=== PATIENT | female | born 1990 | race Caucasian/White ===

== ENCOUNTER 2019-08-21 00:06 | Emergency (ER) | payer OTHER ==
[2019-08-21] MEDS ORDERED: LORazepam 2 MG/ML VIAL ONE (00:41)
[2019-08-21] MEDS ORDERED: NA CHLORIDE 0.9% 1,000 ML ONE (00:41)
[2019-08-21 00:52] LABS: Basophils % 0.3 % (0-1.3); Hematocrit 32.8 % (36.0-45.0); Lymphocytes % 24.8 % (15.3-44.8); MPV 7.2 fL (7.6-11.3)
[2019-08-21 01:07] LABS: Potassium 3.8 mmol/L (3.5-5.1)
--- NOTE | 2019-08-21 02:02 | ER ---
Nurse's Notes [facility] Name: Jovana Galo Age: 29 yrs Sex: Female : 1990 Arrival Date: 08/21/2019 Time: 00:10 Bed 8 Private MD: Diagnosis: Chest pain, unspecified;Recent influenza, adverse reaction to Tamiflu;Hyperventilation Presentation: 08/21 00:19 Presenting complaint: Patient states: she was diagnosed with the flu on Thursday and just aa1 finished taking her Tamiflu today and this evening she started having chest tightness and felt as if she couldn't breathe. Denies pain. States, "I just can't catch my breath." Pt hyperventilating upon arrival. Transition of care: patient was not received from another setting of care. Onset of symptoms was August 21, 2019. Initial Sepsis Screen: Does the patient meet any 2 criteria? RR > 20 per min. HR > 90 bpm. Does the patient have a suspected source of infection? No. Patient's initial sepsis screen is negative. Care prior to arrival: None. 00:19 Method Of Arrival: Ambulatory aa1 00:19 Acuity: MARLY 3 aa1 02:06 Risk Assessment: Do you want to hurt yourself or someone else? Patient reports no jd3 desire to harm self or others. Triage Assessment: 00:22 General: Appears in no apparent distress. uncomfortable, Behavior is cooperative, aa1 appropriate for age, anxious. Pain: Denies pain. 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 - Coronavirus screen:: The patient has NOT traveled to [place] in the past 14 days. Proceed with normal triage process as indicated. - Social history:: Smoking status: Patient denies any tobacco usage or history of. - Ebola Screening: : Patient denies exposure to infectious person Patient denies travel to an Ebola-affected area in the 21 days before illness onset. Screenin:06 Abuse screen: Denies threats or abuse. Nutritional screening: No deficits noted. jd3 Tuberculosis screening: No symptoms or risk factors identified. Fall Risk IV access (20 points). Ambulatory Aid- None/Bed Rest/Nurse Assist (0 pts). Gait- Normal/Bed Rest/Wheelchair (0 pts) Mental Status- Oriented to own ability (0 pts). Total Vogel Fall Scale indicates No Risk (0-24 pts). Assessment: 00:53 General: Appears in no apparent distress. uncomfortable, well groomed, Behavior is jd3 cooperative, agitated, anxious, restless. Pain: Complains of pain in right jaw, back and chest Pain does not radiate. Pain currently is 8.5 out of 10 on a pain scale. Quality of pain is described as crampy, sharp, stabbing, Pain began 2 hours ago. Neuro: Level of Consciousness is awake, alert, obeys commands, Oriented to person, place, time, situation. Cardiovascular: Heart tones S1 S2 present Capillary refill < 3 seconds in bilateral Patient's skin is warm and dry. Respiratory: Reports shortness of breath at rest Airway is patent Breath sounds are clear bilaterally. GI: Abdomen is flat, non-distended, Bowel sounds present X 4 quads. Abd is soft and non tender X 4 quads. : No signs and/or symptoms were reported regarding the genitourinary system. EENT: No signs and/or symptoms were reported regarding the EENT system. Derm: Skin is intact, is healthy with good turgor, Skin is dry, Skin is normal, Skin temperature is warm. Musculoskeletal: No signs and/or symptoms reported regarding the musculoskeletal system. Circulation, motion, and sensation intact. Range of motion: intact in all extremities. 01:30 Reassessment: Patient appears in no apparent distress at this time. No changes from jd3 previously documented assessment. Patient and/or family updated on plan of care and expected duration. Pain level reassessed. Patient is alert, oriented x 3, equal unlabored respirations, skin warm/dry/pink. 02:00 Reassessment: Patient appears in no apparent distress at this time. Patient and/or jd3 family updated on plan of care and expected duration. Pain level reassessed. Patient is alert, oriented x 3, equal unlabored respirations, skin warm/dry/pink. pt reports less anxiety Patient states feeling better. 02:20 Reassessment: Patient appears in no apparent distress at this time. Patient and/or jd3 family updated on plan of care and expected duration. Pain level reassessed. Patient is alert, oriented x 3, equal unlabored respirations, skin warm/dry/pink. pt reported understanding of discharge instructions, even and steady gait upon discharge. Vital Signs: 00:22 BP 123 / 95; Pulse 110; Resp 28; Temp 98.4; Pulse Ox 100% on R/A; Weight 58.06 kg; aa1 Height 5 ft. 4 in. (162.56 cm); Pain 0/10; 01:59 BP 123 / 95; Pulse 95; Resp 18 S; Pulse Ox 100% on R/A; jd3 00:22 Body Mass Index 21.97 (58.06 kg, 162.56 cm) aa1 ED Course: 00:10 Patient arrived in ED. es 00:13 [facility]C [facility] snw 00:13 Shay Workman MD is Attending Physician. snw 00:18 Patient placed in an exam room, on a stretcher. aa1 00:21 Triage completed. aa1 00:26 Ozzie Rubio, RN is Primary Nurse. jd3 00:34 EKG done, by ED staff, reviewed by Lola COSME. jd3 01:00 Inserted saline lock: 20 gauge in right antecubital area, using aseptic technique. jd3 Blood collected. 02:05 Patient has correct armband on for positive identification. monitoring tech on. Pulse jd3 ox on. NIBP on. 02:05 No provider procedures requiring assistance completed. Patient maintains SpO2 jd3 saturation greater than 95% on room air. 02:20 IV discontinued, intact, bleeding controlled, No redness/swelling at site. Pressure jd3 dressing applied. Administered Medications: 00:52 Drug: NS 0.9% 1000 ml Route: IV; Rate: 1 bolus; Site: right antecubital; jd3 00:52 Drug: Ativan 2 mg Route: IVP; Site: right antecubital; jd3 01:50 Follow up: Response: No adverse reaction jd3 Outcome: 02:00 Discharge ordered by . snw 02:19 Discharged to home ambulatory, with family. jd3 02:19 Condition: stable 02:19 Discharge instructions given to patient, family, Instructed on discharge instructions, follow up and referral plans. medication usage, Demonstrated understanding of instructions, follow-up care, medications, Prescriptions given X 1. 02:21 Patient left the ED. jd3 Signatures: Lorena Auguste RN RN aa1 Lola Melton, ACRYLIC FABRICATOR-C ACRYLIC FABRICATOR-Csnw Pratibha Lynn Jonathon, RN RN jd3 Corrections: (The following items were deleted from the chart) 02:21 02:00 Reassessment: Patient appears in no apparent distress at this time. Patient jd3 and/or family updated on plan of care and expected duration. Pain level reassessed. Patient is alert, oriented x 3, equal unlabored respirations, skin warm/dry/pink. Patient states feeling better. jd3
--- NOTE | 2019-08-21 02:03 | EDPHYS ---
Physician Documentation [facility] Name: Jovana Galo Age: 29 yrs Sex: Female : 1990 Arrival Date: 08/21/2019 Time: 00:10 Bed 8 Private MD: ED Physician Shay Workman HPI: 08/21 01:09 This 29 yrs old Female presents to ER via Ambulatory with complaints of Chest snw Tightness, Breathing Difficulty. 01:09 Onset: The symptoms/episode began/occurred suddenly, and became persistent. Associated snw signs and symptoms: Pertinent positives: chest pain, congestion, shortness of breath. Modifying factors: The patient symptoms are alleviated by nothing. It is unknown whether or not the patient has had similar symptoms in the past. It is unknown whether or not the patient has recently seen a physician. usually takes Klonopin q evening, did not take tonight. 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 - Coronavirus screen:: The patient has NOT traveled to [place] in the past 14 days. Proceed with normal triage process as indicated. - Social history:: Smoking status: Patient denies any tobacco usage or history of. - Ebola Screening: : Patient denies exposure to infectious person Patient denies travel to an Ebola-affected area in the 21 days before illness onset. ROS: 00:47 Constitutional: Negative for fever, chills, and weight loss, Eyes: Negative for injury, snw pain, redness, and discharge, ENT: Negative for injury, pain, and discharge, Neck: Negative for injury, pain, and swelling, Abdomen/GI: Negative for abdominal pain, nausea, vomiting, diarrhea, and constipation, Back: Negative for injury and pain, : Negative for injury, bleeding, discharge, and swelling, MS/Extremity: Negative for injury and deformity, Skin: Negative for injury, rash, and discoloration, Neuro: Negative for headache, weakness, numbness, tingling, and seizure, Psych: Negative for depression, anxiety, suicide ideation, homicidal ideation, and hallucinations. 00:47 Cardiovascular: Positive for chest pain. 00:47 Respiratory: Positive for orthopnea, shortness of breath. Exam: 00:45 Head/Face: Normocephalic, atraumatic. Eyes: Pupils equal round and reactive to light, snw extra-ocular motions intact. Lids and lashes normal. Conjunctiva and sclera are non-icteric and not injected. Cornea within normal limits. Periorbital areas with no swelling, redness, or edema. ENT: Nares patent. No nasal discharge, no septal abnormalities noted. Tympanic membranes are normal and external auditory canals are clear. Oropharynx with no redness, swelling, or masses, exudates, or evidence of obstruction, uvula midline. Mucous membranes moist. Neck: Trachea midline, no thyromegaly or masses palpated, and no cervical lymphadenopathy. Supple, full range of motion without nuchal rigidity, or vertebral point tenderness. No Meningismus. Chest/axilla: Normal chest wall appearance and motion. Nontender with no deformity. No lesions are appreciated. 00:45 Abdomen/GI: Soft, non-tender, with normal bowel sounds. No distension or tympany. No guarding or rebound. No evidence of tenderness throughout. Back: No spinal tenderness. No costovertebral tenderness. Full range of motion. Skin: Warm, dry with normal turgor. Normal color with no rashes, no lesions, and no evidence of cellulitis. MS/ Extremity: Pulses equal, no cyanosis. Neurovascular intact. Full, normal range of motion. Neuro: Awake and alert, GCS 15, oriented to person, place, time, and situation. Cranial nerves II-XII grossly intact. Motor strength 5/5 in all extremities. Sensory grossly intact. Cerebellar exam normal. Normal gait. 00:45 Constitutional: The patient appears awake, anxious, restless. 00:45 Cardiovascular: Rate: tachycardic, Rhythm: regular, Pulses: no pulse deficits are appreciated. 00:45 Respiratory: the patient does not display signs of respiratory distress, Respirations: shallow respirations, splinting, that is mild, tachypnea, Breath sounds: are clear throughout, no bronchial sounds, hyperventilating. 00:45 Psych: Behavior/mood is anxious, Affect is animated, Oriented to person, place, time, Judgement / Insight is normal. tearful. Vital Signs: 00:22 BP 123 / 95; Pulse 110; Resp 28; Temp 98.4; Pulse Ox 100% on R/A; Weight 58.06 kg; aa1 Height 5 ft. 4 in. (162.56 cm); Pain 0/10; 01:59 BP 123 / 95; Pulse 95; Resp 18 S; Pulse Ox 100% on R/A; jd3 00:22 Body Mass Index 21.97 (58.06 kg, 162.56 cm) aa1 MDM: 00:14 Patient medically screened. gina 01:38 Data reviewed: vital signs, nurses notes. Data interpreted: Pulse oximetry: on room air snw is 100 %. Interpretation: normal. Counseling: I had a detailed discussion with the patient and/or guardian regarding: the historical points, exam findings, and any diagnostic results supporting the discharge/admit diagnosis, the presence of at least one elevated blood pressure reading (>120/80) during this emergency department visit, lab results. Response to treatment: the patient's symptoms have markedly improved after treatment. Special discussion: Based on the patient's history, exam, and Dx evaluation, there is no indication for emergent intervention or inpatient Tx. It is understood by the patient/guardian that if the Sx's persist or worsen they need to return immediately for re-evaluation. I have referred the patient to see his PCP for further evaluation of high blood pressure. Based on the history and exam findings, there is no indication for further emergent testing or inpatient evaluation. I discussed with the patient/guardian the need to see the primary care provider for further evaluation of the symptoms. 08/21 00:18 Order name: DD snw 08/21 00:18 Order name: CBC with Diff snw 08/21 00:18 Order name: Chem 7 snw 08/21 00:55 Order name: CBC with Automated Diff; Complete Time: 00:57 EDMS 08/21 01:00 Order name: D-Dimer; Complete Time: 01:07 EDMS 08/21 01:07 Order name: Basic Metabolic Panel; Complete Time: 01:08 EDMS 08/21 00:18 Order name: EKG; Complete Time: 00:19 snw 08/21 00:18 Order name: EKG - Nurse/Tech; Complete Time: 00:52 snw Administered Medications: 00:52 Drug: NS 0.9% 1000 ml Route: IV; Rate: 1 bolus; Site: right antecubital; jd3 00:52 Drug: Ativan 2 mg Route: IVP; Site: right antecubital; jd3 01:50 Follow up: Response: No adverse reaction jd3 Disposition: 03:09 Co-signature as Attending Physician, Shay Workman MD I agree with the assessment and gina plan of care. Disposition: 08/21/19 02:00 Discharged to Home. Impression: Chest pain, unspecified, Recent influenza, adverse reaction to Tamiflu, Hyperventilation. - Condition is Stable. - Discharge Instructions: Nonspecific Chest Pain, Hypertension, Hyperventilation, Rehydration, Adult. - Prescriptions for orphenadrine citrate 100 mg Oral Tablet Sustained Release - take 1 tablet by ORAL route 2 times per day As needed; 20 tablet. - Work release form, Medication Reconciliation Form, Thank You Letter, Antibiotic Education, Prescription Opioid Use form. - Follow up: Emergency Department; When: As needed; Reason: Worsening of condition. Follow up: Private Physician; When: 2 - 3 days; Reason: Recheck today's complaints, Continuance of care, Re-evaluation by your physician. Signatures: Dispatcher [employer] Lorena Boss, RN RN Shay Mejia MD MD cha Therrien, Shelly, RADIAL ROUTER OPERATOR-C RADIAL ROUTER OPERATOR-Hayleew Ozzie Rubio RN RN jd3 Corrections: (The following items were deleted from the chart) 02:21 02:00 08/21/2019 02:00 Discharged to Home. Impression: Chest pain, unspecified; Recent jd3 influenza, adverse reaction to Tamiflu; Hyperventilation. Condition is Stable. Discharge Instructions: Nonspecific Chest Pain, Hypertension, Hyperventilation, Rehydration, Adult. Prescriptions for orphenadrine citrate 100 mg Oral Tablet Sustained Release - take 1 tablet by ORAL route 2 times per day As needed; 20 tablet. and Forms are Work release form, Medication Reconciliation Form, Thank You Letter, Antibiotic Education, Prescription Opioid Use. Follow up: Emergency Department; When: As needed; Reason: Worsening of condition. Follow up: Private Physician; When: 2 - 3 days; Reason: Recheck today's complaints, Continuance of care, Re-evaluation by your physician. snw
[2019-08-21 02:51] VITALS: BP 123/95; O2SAT 100
[2019-08-21 02:52] VITALS: TEMP 98.4
--- NOTE | 2019-08-21 07:45 | EKG ---
Test Date: 2019-08-21 Test Time: 00:34:51 Cost Report Clerk: AYDEN MEASUREMENT RESULTS: Intervals: Rate: 109 HI: 112 QRSD: 80 QT: 338 QTc: 455 [place]: P: 73 HI: 112 QRS: 70 T: 56 INTERPRETIVE STATEMENTS: Sinus tachycardia Otherwise normal ECG Compared to ECG 12/19/2014 02:50:15 Sinus rhythm no longer present Electronically Signed On 08-21-19 07:44:23 SEISMOGRAPH COMPUTER by Fabrice Toussaint
== END 2019-08-21 02:21 | disposition home or self-care (01) ==
LOC: ER 00:06
DX: R06.4 Hyperventilation (principal); T37.5X5A Adverse effect of antiviral drugs, initial encounter; J11.1 Influenza due to unidentified influenza virus with other respiratory manifestations; F41.9 Anxiety disorder, unspecified; Z98.82 Breast implant status
CPT/HCPCS: 93005; 85025; 80048; 36415; 85379; 96374; 99285; J7030

== ENCOUNTER 2020-10-28 15:15 | Emergency (ER) | payer OTHER ==
[2020-10-28] MEDS ORDERED: LORAZEPAM 1 MG TABLET ONE (16:54)
[2020-10-28] MEDS ORDERED: LIDOCAINE 1% 20 ML MDV ONE (16:54)
--- NOTE | 2020-10-28 17:35 | RAD REPORT ---
EXAM DESCRIPTION: RAD - Forearm Left - 10/28/2020 5:10 pm CLINICAL HISTORY: laceration FINDINGS: No fracture or radiopaque foreign body seen.
--- NOTE | 2020-10-28 18:42 | EDPHYS ---
Physician Documentation [facility] Name: Jovana Galo Age: 30 yrs Sex: Female : 1990 Arrival Date: 10/28/2020 Time: 15:16 Bed 28 Private MD: ED Physician Evelyn Gibbons HPI: 10/28 19:12 This 30 yrs old Female presents to ER via Ambulatory with complaints of kb Laceration To Arm. 19:12 The patient has a laceration related to: carrying a mirror that fell and a piece of kb glass cut forearm occurred at home, and there are no complicating factors. The injury was accidental. The laceration(s) is(are) located on the dorsal aspect of left forearm. Onset: The symptoms/episode began/occurred just prior to arrival. Associated signs and symptoms: The patient has no apparent associated signs or symptoms. The patient has not experienced similar symptoms in the past. The patient has not recently seen a physician. 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 - Social history:: Smoking status: Patient/guardian denies using tobacco, the patient reports quitting approximately 6 years ago. ROS: 19:10 Constitutional: Negative for fever, chills, and weight loss, MS/Extremity: Negative for kb injury and deformity, Neuro: Negative for headache, weakness, numbness, tingling, and seizure. 19:10 Skin: Positive for laceration(s), of the dorsal aspect of left forearm. Exam: 19:11 Head/Face: Normocephalic, atraumatic. Respiratory: Respirations even and unlabored. kb No increased work of breathing, no retractions or nasal flaring. MS/ Extremity: Pulses equal, no cyanosis. Neurovascular intact. Full, normal range of motion. Neuro: Awake and alert, GCS 15, oriented to person, place, time, and situation. Moves all extremities. Normal gait. 19:11 Constitutional: The patient appears alert, awake, anxious. 19:11 Skin: injury, laceration(s), the wound is approximately 8 cm(s), with a depth of 1.5 cm(s), of the dorsal aspect of left forearm, that can be described as clean, no foreign body, linear, without bleeding. Vital Signs: 15:57 BP 99 / 86; Pulse 98; Resp 18 S; Temp 98.2(TE); Pulse Ox 99% on R/A; Weight 67.59 kg ca1 (R); Height 5 ft. 4 in. (162.56 cm) (R); Pain 10/10; 15:57 Body Mass Index 25.58 (67.59 kg, 162.56 cm) ca1 Laceration: 18:38 Wound Repair of 8cm ( 3.1in ) subcutaneous laceration to dorsal aspect of left forearm. kb Linear shaped.. Distal neuro/vascular/tendon intact. Anesthesia: Wound infiltrated with 7 mls of 1% lidocaine. Wound prep: Extensive cleansing with hibiclenz by me, Wound irrigation with saline by me. Skin closed with 7 4-0 Prolene using 3 cruciate sutures, 4 simple sutures, 1 internal simple suture using 4.0 chromic. Patient tolerated well. MDM: 16:22 Patient medically screened. kb 18:38 Data reviewed: vital signs, nurses notes. Data interpreted: Pulse oximetry: on room air kb is 99 %. Interpretation: normal. Counseling: I had a detailed discussion with the patient and/or guardian regarding: the historical points, exam findings, and any diagnostic results supporting the discharge/admit diagnosis, radiology results, the need for outpatient follow up, a family practitioner, to return to the emergency department if symptoms worsen or persist or if there are any questions or concerns that arise at home. 10/28 16:43 Order name: Forearm Left XRAY; Complete Time: 17:42 aa5 10/28 16:32 Order name: Prolene, Sutures; Complete Time: 16:51 kb 10/28 16:32 Order name: Gloves, Sterile; Complete Time: 16:51 kb 10/28 16:32 Order name: Setup Suture Tray; Complete Time: 16:51 kb Administered Medications: 16:35 Drug: Ativan (LORazepam) 1 mg Route: PO; aa5 18:00 Drug: Lidocaine (1 %) 1 vials {Note: administered by KAIAKO KOHANGA REO during laceration repair. .} aa5 Volume: 20 ml; Route: Infiltration; Disposition: 10/28/20 18:41 Discharged to Home. Impression: Laceration without foreign body of left forearm. - Condition is Stable. - Discharge Instructions: Laceration Care, Adult, [id number]. - Medication Reconciliation Form, Thank You Letter, Antibiotic Education, Prescription Opioid Use, Work release form form. - Follow up: Emergency Department; When: As needed; Reason: Worsening of condition. Follow up: Private Physician; When: 2 - 3 days; Reason: Recheck today's complaints, Continuance of care, Re-evaluation by your physician. - Notes: sutures to be removed in 10-14 days Addendum: 10/31/2020 20:23 Co-signature as Attending Physician, Evelyn Gibbons MD. m a2 Signatures: Dispatcher [employer] EDMS Michelle Dawn, BA HINOJOSA-Hyacinth Tineo, RN RN aa5 Evelyn Gibbons MD MD ma2 Danielle Benitez Cheryl, RN RN ca1 Corrections: (The following items were deleted from the chart) 10/28 18:53 18:41 10/28/2020 18:41 Discharged to Home. Impression: Laceration without foreign body eb of left forearm. Condition is Stable. Forms are Medication Reconciliation Form, Thank You Letter, Antibiotic Education, Prescription Opioid Use. Follow up: Emergency Department; When: As needed; Reason: Worsening of condition. Follow up: Private Physician; When: 2 - 3 days; Reason: Recheck today's complaints, Continuance of care, Re-evaluation by your physician. kb
--- NOTE | 2020-10-28 18:42 | ER ---
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 Was carrying a mirror when ca1 the mirror fell and cut my L forearm. Bleeding controlled. Coronavirus screen: Client denies travel out of the [place] in the last 14 days. At this time, the client does not indicate any symptoms associated with coronavirus-19. Ebola Screen: Patient negative for fever greater than or equal to 101.5 degrees Fahrenheit, and additional compatible Ebola Virus Disease symptoms Patient denies exposure to infectious person. Patient denies travel to an Ebola-affected area in the 21 days before illness onset. No symptoms or risks identified at this time. Initial Sepsis Screen: Does the patient meet any 2 criteria? No. Patient's initial sepsis screen is negative. Does the patient have a suspected source of infection? No. Patient's initial sepsis screen is negative. Risk Assessment: Do you want to hurt yourself or someone else? Patient reports no desire to harm self or others. Onset of symptoms was October 28, 2020. 15:57 Method Of Arrival: Ambulatory ca1 15:57 Acuity: MARLY 4 ca1 Triage Assessment: 16:01 Injury Description: Laceration sustained to dorsal aspect of left forearm is 7.6 to 20 ca1 cm long, bleeding moderately. 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 - Social history:: Smoking status: Patient/guardian denies using tobacco, the patient reports quitting approximately 6 years ago. Screenin:45 Abuse screen: Denies threats or abuse. Nutritional screening: No deficits noted. aa5 Tuberculosis screening: No symptoms or risk factors identified. Fall Risk None identified. Assessment: 16:30 General: Appears uncomfortable, Behavior is anxious. Pain: Complains of pain in dorsal aa5 aspect of left forearm. Neuro: Level of Consciousness is awake, alert, obeys commands, Oriented to person, place, time, situation. Cardiovascular: Capillary refill < 3 seconds is brisk in bilateral fingers. Respiratory: Airway is patent Respiratory effort is even, unlabored, Respiratory pattern is hyperventilation. GI: No signs and/or symptoms were reported involving the gastrointestinal system. : No signs and/or symptoms were reported regarding the genitourinary system. EENT: No signs and/or symptoms were reported regarding the EENT system. Derm: Skin is pink, warm \T\ dry. Musculoskeletal: Range of motion: intact in all extremities. Injury Description: Laceration sustained to left forearm is bleeding a small amount a dressing was applied. 16:45 Reassessment: Pt is too anxious to receive tetanus vaccine at this time. Will give aa5 after pt is calm. 16:45 Neuro: Level of Consciousness is awake, alert, obeys commands, Oriented to person, aa5 place, time, situation. Respiratory: Airway is patent Respiratory effort is even, unlabored, Respiratory pattern is regular, symmetrical, tachypnea. Derm: Skin is pink, warm \T\ dry. 19:47 Reassessment: Pt did not receive tetanus vaccine prior to d/c. Called pt and left voice aa5 mail. . Vital Signs: 15:57 BP 99 / 86; Pulse 98; Resp 18 S; Temp 98.2(TE); Pulse Ox 99% on R/A; Weight 67.59 kg ca1 (R); Height 5 ft. 4 in. (162.56 cm) (R); Pain 10/10; 15:57 Body Mass Index 25.58 (67.59 kg, 162.56 cm) ca1 ED Course: 15:16 Patient arrived in ED. as 16:00 Triage completed. ca1 16:00 Arm band placed on right wrist. ca1 16:22 Michelle Dawn FNP-C is PHCP. kb 16:22 Evelyn Gibbons MD is Attending Physician. kb 16:30 Patient has correct armband on for positive identification. Bed in low position. Call aa5 light in reach. Side rails up X 1. Adult w/ patient. 16:32 Hyacinth Nieves, ISABELL is Primary Nurse. aa5 17:06 Forearm Left XRAY In Process Unspecified. EDMS 18:45 Patient did not have IV access during this emergency room visit. aa5 Administered Medications: 16:35 Drug: Ativan (LORazepam) 1 mg Route: PO; aa5 18:00 Drug: Lidocaine (1 %) 1 vials {Note: administered by DEHYDROGENATION OPERATOR HEAD during laceration repair. .} aa5 Volume: 20 ml; Route: Infiltration; Outcome: 18:41 Discharge ordered by . sushma 18:45 Discharged to home ambulatory, with significant other. fm2 18:45 Condition: stable 18:45 Discharge instructions given to patient, Instructed on discharge instructions, follow up and referral plans. Demonstrated understanding of instructions, follow-up care. 18:53 Patient left the ED. eb Signatures: Dispatcher [employer] EDMO Michelle Dawn, ACID CONCENTRATOR-C ACID CONCENTRATOR-Kateryna Lara Audri, RN RN aa5 Danielle Benitez Frofel 2 Melissa Alejo RN RN ca1 Corrections: (The following items were deleted from the chart) 19:49 18:45 No provider procedures requiring assistance completed. aa5 aa5
[2020-10-28 19:22] VITALS: BP 99/86; TEMP 98.2; O2SAT 99
== END 2020-10-28 18:53 | disposition home or self-care (01) ==
LOC: ER 15:15
PROC: 0HQEXZZ Repair Left Lower Arm Skin, External Approach (ICD-10-PCS; principal; 2020-10-28)
DX: S51.812A Laceration without foreign body of left forearm, initial encounter (principal); Z87.891 Personal history of nicotine dependence; F41.9 Anxiety disorder, unspecified; W45.8XXA Other foreign body or object entering through skin, initial encounter
CPT/HCPCS: 99283

== ENCOUNTER 2020-11-05 15:24 | Emergency (ER) | payer OTHER ==
[2020-11-05] MEDS ORDERED: TETANUS & DIPHTHERIA TOX,ADULT 0.5 ML VIAL ONE (17:02)
--- NOTE | 2020-11-05 17:28 | EDPHYS ---
Physician Documentation [facility] Name: Jovana Galo Age: 30 yrs Sex: Female : 1990 Arrival Date: 11/05/2020 Time: 15:38 Bed DIS5 Private MD: ED Physician Tao Doss HPI: 11/05 16:28 This 30 yrs old Female presents to ER via Ambulatory with complaints of jmm Suture Recheck. 16:28 Patient presents to ED for recheck of: laceration. The affected area is on the left jmm arm. Progress: The patient reports increased redness, swelling. The patient has not experienced similar symptoms in the past. This is a 30 year old female with a history of anxiety that presents to the ED with complaints of redness and swelling to the left arm. Sutures placed 1 week ago. . 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 - Social history:: Smoking status: Patient/guardian denies using tobacco, the patient reports quitting approximately 5 years ago. ROS: 16:28 Constitutional: Negative for fever, chills, and weight loss, Cardiovascular: Negative jmm for chest pain, palpitations, and edema, Respiratory: Negative for shortness of breath, cough, wheezing, and pleuritic chest pain. 16:28 All other systems are negative. Exam: 16:28 Constitutional: This is a well developed, well nourished patient who is awake, alert, jmm and in no acute distress. Head/Face: atraumatic. Eyes: EOMI, no conjunctival erythema appreciated ENT: Moist Mucus Membranes Neck: Trachea midline, Supple Chest/axilla: Normal chest wall appearance and motion. Cardiovascular: Regular rate and rhythm. No edema appreciated Respiratory: Normal respirations, no respiratory distress appreciated Abdomen/GI: Non distended, soft Back: Normal ROM 16:28 Skin: erythema and induration noted to the left palmar surface of the forearm. 16:28 Neuro: Orientation: is normal, Mentation: is normal, Memory: is normal. 16:28 Psych: Behavior/mood is pleasant, cooperative. Vital Signs: 16:09 BP 126 / 89; Pulse 99; Resp 17 S; Temp 97.5(TE); Pulse Ox 100% on R/A; Weight 65.77 kg jd3 (R); Height 5 ft. 4 in. (162.56 cm) (R); Pain 8/10; 17:29 BP 118 / 76; Pulse 89; Resp 16 S; Pulse Ox 100% on R/A; ca1 16:09 Body Mass Index 24.89 (65.77 kg, 162.56 cm) jd3 Procedures: 17:22 Suture/Staple removal: Removed 6 sutures, from left arm, site appears reddened, Patient dmitriy tolerated well. MDM: 17:13 Patient medically screened. dmitriy 17:22 Data reviewed: vital signs, nurses notes. Counseling: I had a detailed discussion with dmitriy the patient and/or guardian regarding: the historical points, exam findings, and any diagnostic results supporting the discharge/admit diagnosis, the need for outpatient follow up, to return to the emergency department if symptoms worsen or persist or if there are any questions or concerns that arise at home. ED course: Patient is alert and non toxic in appearance in the ED. Will be treated with oral abx. Patient is otherwise given strict return precautions. patient understood and agrees with the plan of care. . 11/05 17:14 Order name: Wound Care; Complete Time: 17:19 [facility] Administered Medications: 16:44 Drug: Tetanus-Diphtheria Toxoid Adult 0.5 ml {Ophthalmic Nurse: [employer]. Exp: ca1 12/02/2021. Lot #: [id number]. } Route: IM; Site: left deltoid; 17:19 Follow up: Response: No adverse reaction ca1 Disposition: 17:37 Co-signature as Attending Physician, Tao Doss MD. rn Disposition: 11/05/20 17:27 Discharged to Home. Impression: Cellulitis of unspecified part of limb. - Condition is Stable. - Discharge Instructions: Cellulitis, Adult. - Prescriptions for Ultracet 37.5- 325 mg Oral Tablet - take 1 tablet by ORAL route every 6 hours - for up to 5 days; do not exceed 8 tablets per day.; 20 tablet. Bactrim DS 800- 160 mg Oral Tablet - take 1 tablet by ORAL route every 12 hours for 10 days; 20 tablet. - Medication Reconciliation Form, Thank You Letter, Antibiotic Education, Prescription Opioid Use form. - Follow up: Private Physician; When: 2 - 3 days; Reason: Recheck today's complaints, Continuance of care, Re-evaluation by your physician. Signatures: Reed Mas PA PA jmm Nieto, Roman, MD MD rn Davies, Jonathon, RN RN jd3 Melissa Alejo RN RN ca1 Corrections: (The following items were deleted from the chart) 17:33 17:27 11/05/2020 17:27 Discharged to Home. Impression: Cellulitis of unspecified part ca1 of limb. Condition is Stable. Forms are Medication Reconciliation Form, Thank You Letter, Antibiotic Education, Prescription Opioid Use. Follow up: Private Physician; When: 2 - 3 days; Reason: Recheck today's complaints, Continuance of care, Re-evaluation by your physician. dmitriy
--- NOTE | 2020-11-05 17:28 | ER ---
Nurse's Notes [facility] Name: Jovana Galo Age: 30 yrs Sex: Female : 1990 Arrival Date: 11/05/2020 Time: 15:38 Bed DIS5 Private MD: Diagnosis: Cellulitis of unspecified part of limb Presentation: 11/05 16:06 Chief complaint: Patient states: "I got my stitches, about 7 days ago and I was called j to come back to get my tetanus shot and to maybe get my stitches removed.". Coronavirus screen: At this time, the client does not indicate any symptoms associated with coronavirus-19. Ebola Screen: Patient negative for fever greater than or equal to 101.5 degrees Fahrenheit, and additional compatible Ebola Virus Disease symptoms. Initial Sepsis Screen: Does the patient meet any 2 criteria? No. Patient's initial sepsis screen is negative. Does the patient have a suspected source of infection? No. Patient's initial sepsis screen is negative. Risk Assessment: Do you want to hurt yourself or someone else? Patient reports no desire to harm self or others. Onset of symptoms was October 28, 2020. 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 - Social history:: Smoking status: Patient/guardian denies using tobacco, the patient reports quitting approximately 5 years ago. Screenin:26 Abuse screen: Denies threats or abuse. Denies injuries from another. Nutritional ca1 screening: No deficits noted. Tuberculosis screening: No symptoms or risk factors identified. Fall Risk None identified. Assessment: 16:24 General: Appears in no apparent distress. comfortable, Behavior is anxious. Pain: ca1 Complains of pain in dorsal aspect of left forearm Pain currently is 8 out of 10 on a pain scale. Pain began 2-3 days ago. Neuro: Level of Consciousness is awake, alert, obeys commands, Oriented to person, place, time, situation. Derm: Skin is intact, is healthy with good turgor, Skin is pink, warm \\T\\ dry. Wound noted Repaired lac on L forearm, sutures in place, well-healed. Surrounding area appears red and swollen, reports tenderness around lac repair. Musculoskeletal: Circulation, motion, and sensation intact. Capillary refill < 3 seconds. 17:29 Reassessment: Patient appears in no apparent distress at this time. Patient and/or ca1 family updated on plan of care and expected duration. Pain level reassessed. Patient is alert, oriented x 3, equal unlabored respirations, skin warm/dry/pink. Vital Signs: 16:09 BP 126 / 89; Pulse 99; Resp 17 S; Temp 97.5(TE); Pulse Ox 100% on R/A; Weight 65.77 kg jd3 (R); Height 5 ft. 4 in. (162.56 cm) (R); Pain 8/10; 17:29 BP 118 / 76; Pulse 89; Resp 16 S; Pulse Ox 100% on R/A; ca1 16:09 Body Mass Index 24.89 (65.77 kg, 162.56 cm) jd3 ED Course: 15:38 Patient arrived in ED. as 16:08 Triage completed. jd3 16:11 Arm band placed on. jd3 16:22 Melissa Alejo, ISABELL is Primary Nurse. ca1 16:24 Reed Mas PA is PHCP. [facility] 16:24 Tao Doss MD is Attending Physician. [facility] 16:26 Patient has correct armband on for positive identification. ca1 17:15 No provider procedures requiring assistance completed. Removal of Removed sutures from ca1 dorsal aspect of left forearm Suture site is reddened gaping Patient tolerated well. 17:19 Wound care: to laceration located on dorsal aspect of left forearm was cleaned with ca1 Betadine, dressed with Neosporin, 4X4s, Patient tolerated well. 17:20 Dressings: 4X4s X 2; dorsal aspect of left forearm. ca1 17:30 Patient did not have IV access during this emergency room visit. ca1 Administered Medications: 16:44 Drug: Tetanus-Diphtheria Toxoid Adult 0.5 ml {Supervisor Denture Department: [employer]. Exp: ca1 12/02/2021. Lot #: [id number]. } Route: IM; Site: left deltoid; 17:19 Follow up: Response: No adverse reaction ca1 Outcome: 17:27 Discharge ordered by MD. izaguirre 17:30 Discharged to home ambulatory. ca1 17:30 Condition: stable 17:30 Discharge instructions given to patient, Instructed on discharge instructions, follow up and referral plans. no drinking with medication, no driving heavy equipment, medication usage, Demonstrated understanding of instructions, follow-up care, medications, Prescriptions given X 2. 17:33 Patient left the ED. ca1 Signatures: Reed Mas PA PA jmm Martinez, Amelia as Davies, Jonathon, RN RN jd3 Melissa Alejo RN RN ca1 Corrections: (The following items were deleted from the chart) 16:27 16:24 Derm: Skin is intact, is healthy with good turgor, Skin is pink, warm \\T\\ dry. ca1 Wound noted ca1 17: 17:19 Wound care: to laceration located on dorsal aspect of left forearm was cleaned ca1 with Hibiclens, dressed with 4X4s, Patient tolerated well. ca1
[2020-11-05] MEDS ORDERED: IBUPROFEN 200 MG TAB PO ONE (17:41)
[2020-11-05] MEDS ORDERED: IBUPROFEN 400 MG TAB ONE (17:41)
[2020-11-05 17:45] VITALS: TEMP 97.5; O2SAT 100
[2020-11-05 17:47] VITALS: BP 118/76
== END 2020-11-05 17:33 | disposition home or self-care (01) ==
LOC: ER 15:24
DX: Z48.02 Encounter for removal of sutures (principal); L03.114 Cellulitis of left upper limb; Z23 Encounter for immunization
CPT/HCPCS: 90471; 90714; 99283

== ENCOUNTER 2023-05-16 19:39 | Emergency (ER) | payer OTHER ==
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
[2023-05-16] MEDS ORDERED: DIPHENHYDRAMINE 50 MG/ML VIAL ONE (20:20)
[2023-05-16] MEDS ORDERED: METOCLOPRAMIDE 10 MG/2mL INJ ONE (20:20)
[2023-05-16] MEDS ORDERED: dexAMETHasone 10 MG/ML VIAL ONE (20:20)
[2023-05-16] MEDS ORDERED: NA CHLORIDE 0.9% 1,000 ML ONE (20:21)
[2023-05-16] MEDS ORDERED: KETOROLAC 30 MG/ML INJ ONE (20:21)
[2023-05-16 20:37] LABS: Absolute Lymphocytes (CBC) 0.7 K/uL (0.7-4.9); Hematocrit 35.1 % (36.0-45.0); Lymphocytes % 13.6 % (15.3-44.8); MCV 86.8 fL (80-100); MPV 7.4 fL (7.6-11.3); Platelets 194 thou/uL (152-406); RBC Red Blood Cell Count 4.04 M/uL (3.86-4.86)
[2023-05-16 20:58] LABS: Potassium 3.6 mEq/L (3.5-5.1)
--- NOTE | 2023-05-16 21:21 | ER ---
Nurse's Notes [facility] Name: Jovana Galo Age: 33 yrs Sex: Female : 1990 Arrival Date: 05/16/2023 Time: 19:39 Bed 13 Private MD: Diagnosis: Influenza B Presentation: 05/16 19:44 Chief complaint: Patient states: Headache, cough, body aches "i cant move, im so cold" nj1 since yesterday. States her hands are numb and her chest is "on fire" when she coughs. States she has been taking advil, last dose about 4 hours ago. 19:44 Coronavirus screen: Vaccine status: Patient reports being unvaccinated. Ebola Screen: nj1 Patient denies travel to an Ebola-affected area in the 21 days before illness onset. Initial Sepsis Screen: Does the patient meet any 2 criteria? Temp <36.0*C (96.8*F)) or > 38.3*C (100.9*F). HR > 90 bpm. Yes. Risk Assessment: Do you want to hurt yourself or someone else? Patient reports no desire to harm self or others. Onset of symptoms was May 15, 2023. 19:44 Method Of Arrival: Wheelchair nj 19:44 Acuity: MARLY 3 nj1 19:44 Initial Sepsis Screen: Does the patient have a suspected source of infection? Yes: nj1 Other: to be determined If YES to both, name of provider notified: George Stevens MD. Triage Assessment: 20:46 Pain: Pain began 2-3 days ago. Also complains of nausea. km8 Historical: - Allergies: 19:54 Tamiflu; nj1 - PMHx: 19:54 Anxiety; nj1 - Immunization history:: Client reports having NOT received the Covid vaccine. - Social history:: Smoking status: Reported history of juuling and/or vaping. Screenin:31 [facility] ED Fall Risk Assessment (Adult) History of falling in the last 3 months, km8 including since admission No falls in past 3 months (0 pts) Confusion or Disorientation No (0 pts) Intoxicated or Sedated No (0 pts) Impaired Gait No (0 pts) Mobility Assist Device Used No (0 pt) Altered Elimination No (0 pt) Score/Fall Risk Level 0 - 2 = Low Risk Oriented to surroundings, Maintained a safe environment, Educated pt \\T\\ family on fall prevention, incl call for assistance when getting out of bed, Assessed \\T\\ reinforced patient's understanding of fall precautions. Abuse screen: Denies threats or abuse. Denies injuries from another. Nutritional screening: No deficits noted. Tuberculosis screening: No symptoms or risk factors identified. Assessment: 20:31 General: Appears in no apparent distress. uncomfortable, Behavior is anxious, fussy, km8 restless. Pain: Complains of pain in generalized Pain currently is 8 out of 10 on a pain scale. Quality of pain is described as aching. Neuro: Jacobsen Agitation-Sedation Scale (RASS): 0 - Alert and Calm Level of Consciousness is awake, alert, obeys commands, Oriented to person, place, time, situation. Cardiovascular: Capillary refill < 3 seconds Patient's skin is warm and dry. Respiratory: Airway is patent Respiratory effort is even, unlabored, Respiratory pattern is regular, symmetrical. GI: No signs and/or symptoms were reported involving the gastrointestinal system. : No signs and/or symptoms were reported regarding the genitourinary system. EENT: No signs and/or symptoms were reported regarding the EENT system. Derm: Skin is intact, is healthy with good turgor, Skin is dry, Skin is pink, warm \\T\\ dry. normal, Skin temperature is warm. Musculoskeletal: Range of motion: intact in all extremities. Vital Signs: 19:44 BP 119 / 92; Pulse 100; Resp 20; Temp 102.8(O); Pulse Ox 98% on R/A; Weight 68.04 kg; nj1 Height 5 ft. 4 in. ; 20:30 BP 114 / 64; Pulse 93; Resp 18; Pulse Ox 100% on R/A; km8 21:00 BP 109 / 69; Pulse 89; Resp 16; Pulse Ox 98% on R/A; km8 21:30 BP 108 / 65; Pulse 82; Resp 16; Temp 99.9(O); Pulse Ox 98% on R/A; km8 19:44 Body Mass Index 25.75 (68.04 kg, 162.56 cm) nj1 [place] Coma Score: 20:31 Eye Response: spontaneous(4). Motor Response: obeys commands(6). Verbal Response: km8 oriented(5). Total: 15. ED Course: 19:40 Patient arrived in ED. jj6 19:44 George Stevens MD is Attending Physician. ec2 19:50 Notified ED physician of other No sepsis alert activation per Dr Stevens. nj1 19:51 France Layton, RN is Primary Nurse. km8 19:54 Triage completed. nj1 19:55 Arm band placed on. nj1 20:30 Inserted saline lock: 22 gauge in left hand, using aseptic technique. Blood collected. 8 20:31 Patient has correct armband on for positive identification. Bed in low position. Call km8 light in reach. Side rails up X2. Client placed on continuous cardiac and pulse oximetry monitoring. NIBP monitoring applied. Door closed. Noise minimized. Lights dimmed. Warm blanket given. 20:31 BMP Sent. 8 20:31 CBC with Diff Sent. 8 20:31 COVID-19 SARS RT PCR Sent. 8 20:31 Influenza Screen (a \\T\\ B) Sent. 8 20:31 Patient maintains SpO2 saturation greater than 95% on room air. km8 21:39 Provided Education on: d/c teaching. km8 21:39 No provider procedures requiring assistance completed. km8 21:50 IV discontinued, intact, bleeding controlled, No redness/swelling at site. Pressure 8 dressing applied. Administered Medications: 20:30 Drug: diphenhydrAMINE IVP 25 mg IVP once Route: IVP; Site: left hand; km8 21:51 Follow up: Response: No adverse reaction 8 20:30 Drug: Decadron - Dexamethasone IVP 10 mg IVP once Route: IVP; Site: left hand; km8 21:51 Follow up: Response: No adverse reaction 20:31 Drug: NS 0.9% IV 1000 ml IV at 1 bolus Per protocol; 1000 mL bolus Route: IV; Rate: 1 km8 bolus; Site: left hand; 21:51 Follow up: IV Status: Completed infusion 20:31 Drug: Ketorolac IVP 15 mg IVP once Route: IVP; Site: left hand; km8 21:51 Follow up: Response: No adverse reaction 20:31 Drug: metoCLOPramide IVP 10 mg IVP once; over 1 to 2 minutes Route: IVP; Site: left km8 hand; 21:51 Follow up: Response: No adverse reaction km8 Medication: 21:39 VIS not applicable for this client. km8 Outcome: 21:21 Discharge ordered by . ec2 21:50 Discharged to home via wheelchair, with significant other, km8 21:50 Condition: good 21:50 Discharge instructions given to patient, significant other, Instructed on discharge instructions, follow up and referral plans. Demonstrated understanding of instructions, follow-up care, 21:51 Patient left the ED. km8 Signatures: Rox Mejiaj6 Elizabeth Gdoinez, RN RN nj1 George Stevens MD MD ec2 France Layton RN RN km8 Corrections: (The following items were deleted from the chart) 21:50 21:30 BP 108 / 65; Pulse 82bpm; Resp 16bpm; Pulse Ox 98% RA; km8 km8
--- NOTE | 2023-05-16 21:22 | EDPHYS ---
Physician Documentation [facility] Name: Jovana Galo Age: 33 yrs Sex: Female : 1990 Arrival Date: 05/16/2023 Time: 19:39 Bed 13 Private MD: ED Physician George Stevens HPI: 05/16 19:58 This 33 yrs old Female presents to ER via Wheelchair with complaints of ec2 Headache, Blurred Vision, Numbness Of Arm, Pain All Over, FACIAL/HEAD PRESSURE. 19:58 Patient arrives today for evaluation of URI signs and symptoms. Patient reports that ec2 she has been experiencing approximately 4 days of cough and cold symptoms with progressive nausea and vomiting today. States that she has multiple sick contacts at home with gastroenteritis symptoms. Patient reports headache and body pains. Patient reports that she is having some nausea and vomiting as well. Denies any diarrhea symptoms.. Historical: - Allergies: 19:54 Tamiflu; nj1 - PMHx: 19:54 Anxiety; nj1 - Immunization history:: Client reports having NOT received the Covid vaccine. - Social history:: Smoking status: Reported history of juuling and/or vaping. ROS: 19:58 Constitutional: as per hpi ec2 Exam: 19:58 Constitutional: GEN: NAD Head: atraumatic Eyes: EOMI Ears: External ears are ec2 normal. CV: regular rate LUNGS: no respiratory distress ABD: non-distended SKIN: no evidence of rashes MSK: no evidence of trauma NEURO: moves all extremities equally, cranial nerves II through XII intact, strength intact in all 4 extremities Vital Signs: 19:44 BP 119 / 92; Pulse 100; Resp 20; Temp 102.8(O); Pulse Ox 98% on R/A; Weight 68.04 kg; nj1 Height 5 ft. 4 in. ; 20:30 BP 114 / 64; Pulse 93; Resp 18; Pulse Ox 100% on R/A; km8 21:00 BP 109 / 69; Pulse 89; Resp 16; Pulse Ox 98% on R/A; km8 21:30 BP 108 / 65; Pulse 82; Resp 16; Temp 99.9(O); Pulse Ox 98% on R/A; km8 19:44 Body Mass Index 25.75 (68.04 kg, 162.56 cm) nj1 Shanel Coma Score: 20:31 Eye Response: spontaneous(4). Motor Response: obeys commands(6). Verbal Response: km8 oriented(5). Total: 15. MDM: 19:44 Patient medically screened. ec2 19:58 Data reviewed: vital signs. ED course: Patient arrives today for evaluation of URI ec2 signs and symptoms with associated headache and myalgias. Examination remarkable for nontoxic dividual who is febrile and slightly tachycardic. Will obtain lab work, viral swabs, treat the patient's symptoms. Suspect viral process causing symptoms given the patient's known sick contacts. I have a low clinical index suspicion for bacterial infection such as meningitis or pneumonia. Of note patient does meet SIRS criteria however with no suspicion for bacterial infection so will defer septic work-up.. 21:18 ED course: CBC and metabolic profile reassuring. Patient is flu be positive. On ec2 reassessment patient with improving symptoms. Will discharge home. Return precautions given. . 21:20 ED course: Patient COVID-negative. On reassessment patient with improvement in ec2 symptoms. Will discharge home. Return precautions given.. 18 19:58 Order name: Influenza Screen (a \T\ B); Complete Time: 21:17 ec2 18 19:58 Order name: COVID-19 SARS RT PCR; Complete Time: 21:20 ec2 05/16 19:58 Order name: CBC with Diff ec2 05/16 19:58 Order name: BMP; Complete Time: 21:17 ec2 Administered Medications: 20:30 Drug: diphenhydrAMINE IVP 25 mg IVP once Route: IVP; Site: left hand; km8 21:51 Follow up: Response: No adverse reaction km8 20:30 Drug: Decadron - Dexamethasone IVP 10 mg IVP once Route: IVP; Site: left hand; km8 21:51 Follow up: Response: No adverse reaction 8 20:31 Drug: NS 0.9% IV 1000 ml IV at 1 bolus Per protocol; 1000 mL bolus Route: IV; Rate: 1 km8 bolus; Site: left hand; 21:51 Follow up: IV Status: Completed infusion 20:31 Drug: Ketorolac IVP 15 mg IVP once Route: IVP; Site: left hand; km8 21:51 Follow up: Response: No adverse reaction 8 20:31 Drug: metoCLOPramide IVP 10 mg IVP once; over 1 to 2 minutes Route: IVP; Site: left [facility] hand; 21:51 Follow up: Response: No adverse reaction km8 Disposition Summary: 05/16/23 21:21 Discharge Ordered Notes: Location: Home ec2 Condition: Stable ec2 Diagnosis - Influenza B ec2 Followup: ec2 - With: Private Physician - When: - Reason: Re-evaluation by your physician Discharge Instructions: - Discharge Summary Sheet ec2 - Influenza, Adult ec2 Forms: - Medication Reconciliation Form ec2 - Thank You Letter ec2 - Antibiotic Education ec2 - Prescription Opioid Use ec2 - Patient Portal Instructions ec2 - Leadership Thank You Letter ec2 Signatures: Dispatcher [employer] Elizabeth Mcdaniels, RN RN nj1 George Stevens MD MD ec2 France Layton RN RN km8
[2023-05-16 22:12] VITALS: TEMP 98
[2023-05-16 22:19] VITALS: BP 122/61; O2SAT 100
[2023-05-16 22:21] LABS: Blood Morphology Comment NOT SEEN (NOT SEEN); Platelet Estimate ADEQ; White Blood Cell Scan OK (OK)
== END 2023-05-16 21:51 | disposition home or self-care (01) ==
LOC: ER 19:39
DX: J10.1 Influenza due to other identified influenza virus with other respiratory manifestations (principal); Z11.52 Encounter for screening for COVID-19; Z88.8 Allergy status to other drugs, medicaments and biological substances; Z28.310 Unvaccinated for COVID-19
CPT/HCPCS: 96361; 85025; 80048; 36415; 87635; 87804 ×2; 96375; 96374; 99285; J2765; J1200; J1100; J7030

== ENCOUNTER 2023-05-22 03:38 | Emergency (ER) | payer OTHER ==
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
[2023-05-22] MEDS ORDERED: NA CHLORIDE 0.9% 1,000 ML ONE (04:24)
[2023-05-22 04:34] LABS: Potassium 3.3 mEq/L (3.5-5.1)
--- NOTE | 2023-05-22 05:16 | EDPHYS ---
Physician Documentation [facility] Name: Jovana Galo Age: 33 yrs Sex: Female : 1990 Arrival Date: 05/22/2023 Time: 03:38 Bed 19 Private MD: ED Physician Tao Doss HPI: 05/22 03:56 This 33 yrs old Female presents to ER via Unassigned with complaints of Eye Swelling, rn Redness of Eye, Shortness Of Breath, Cough. 03:56 The patient is experiencing redness, tearing, The patient sustained None. to the right rn eye, caused by an unknown mechanism. Onset: The symptoms/episode began/occurred today. Duration: the symptoms are continuous. Aggravated by nothing. Alleviated by nothing. Severity of symptoms: At their worst the symptoms were mild in the emergency department the symptoms are unchanged. The patient has not experienced similar symptoms in the past. The patient has been recently seen by a physician:. Patient states diagnosed with influenza a few days ago here. Overall was feeling better today with decrease in cough and was able to get out of bed and walk around do some stuff in the yard. Patient reports feeling fast heart rate and noticed right eye became red today with clear drainage. Took some [id number] cold medication and did not help, got nervous and anxious so came in to make sure she was okay. Denies shortness of breath at this time. No history of DVT or PE. No trauma.. Historical: - Allergies: 04:01 Tamiflu; pf1 - PMHx: 04:01 Anxiety; pf1 - PSHx: 04:02 breast augmentation; pf1 - Immunization history:: Adult Immunizations not up to date, Client reports having NOT received the Covid vaccine. Last tetanus immunization: > 10 years ago Flu vaccine is not up to date. - Social history:: Smoking status: Reported history of juuling and/or vaping. Patient uses alcohol, but reports only rare drinking. Patient/guardian denies using street drugs. - Family history:: not pertinent. - Hospitalizations: : No recent hospitalization is reported. ROS: 03:56 Constitutional: Negative for fever, chills, and weight loss, Eyes: Redness and drainage rn from right eye Neck: Negative for injury, pain, and swelling, Cardiovascular: Negative for chest pain, palpitations, and edema, Respiratory: Positive for cough, negative for shortness of breath Abdomen/GI: Negative for abdominal pain, nausea, vomiting, diarrhea, and constipation, MS/Extremity: Negative for injury and deformity, Skin: Negative for injury, rash, and discoloration, Neuro: Positive for generalized weakness Exam: 03:56 Constitutional: This is a well developed, well nourished patient who is awake, alert, rn and in no acute distress. Ambulatory to room without assistance, normal gait, seems very anxious Head/Face: Normocephalic, atraumatic. Eyes: Right thigh with conjunctival injection and clear drainage. Pupils equal and reactive. No hyphema or hypopyon Neck: Trachea midline, no masses palpated, and no cervical lymphadenopathy. Supple, full range of motion without nuchal rigidity, or vertebral point tenderness. No Meningismus. Cardiovascular: Regular rate and rhythm. No pulse deficits. Respiratory: No increased work of breathing, no retractions or nasal flaring. Abdomen/GI: Soft, non-tender Skin: Warm, dry, mottled. No cyanosis MS/ Extremity: Pulses equal, no cyanosis. Neurovascular intact. Full, normal range of motion. Equal circumference. Neuro: Awake and alert, GCS 15, oriented to person, place, time, and situation. Cranial nerves II-XII grossly intact. Motor strength 5/5 in all extremities. Sensory grossly intact. Cerebellar exam normal. Normal gait. Vital Signs: 03:47 BP 128 / 88; Pulse 91; Resp 18; Temp 98.4; Pulse Ox 100% on R/A; Weight 65.77 kg; pf1 Height 5 ft. 4 in. ; 05:57 BP 111 / 77; Pulse 86; Resp 16; Temp 98; Pulse Ox 99% ; rv 03:47 Body Mass Index 24.89 (65.77 kg, 162.56 cm) pf1 [place] Coma Score: 05:57 Eye Response: spontaneous(4). Motor Response: obeys commands(6). Verbal Response: rv oriented(5). Total: 15. MDM: 03:42 Patient medically screened. rn 05:13 Differential diagnosis: Data reviewed: vital signs, nurses notes, lab test result(s), rn radiologic studies, plain films, and as a result, I will discharge patient. Counseling: I had a detailed discussion with the patient and/or guardian regarding the historical points, exam findings, and any diagnostic results supporting the discharge/admit diagnosis, lab results, radiology results, the need for outpatient follow up, to return to the emergency department if symptoms worsen or persist or if there are any questions or concerns that arise at home. Special discussion: I discussed with the patient/guardian in detail that at this point there is no indication for admission to the hospital. It is understood, however, that if the symptoms persist or worsen the patient needs to return immediately for re-evaluation. Based on the history and exam findings, there is no indication for further emergent testing or inpatient evaluation. I discussed with the patient/guardian the need to see the primary care provider for further evaluation of the symptoms. ED course: Chest x-ray images negative for pneumonia or pneumothorax per my interpretation. No oxygen requirement. Patient with conjunctivitis and rash during infection with influenza. Patient took unknown medication. Unknown if reaction. Will prescribe steroids and topical antibiotics for eye. I have personally reviewed all of the results, including but not limited to blood tests and imaging deemed necessary to safely discharge this patient at this time. All results given to and printed out for patient. I personally went over all the results with the patient and answered all questions. Patient will follow-up with PCP and or specialist as discussed. Return precautions given and understood.. 05/22 03:55 Order name: BMP; Complete Time: 04:38 rn 05/22 03:55 Order name: CK; Complete Time: 04:38 rn 05/22 03:55 Order name: XRAY Chest (1 view) rn 05/22 03:55 Order name: IV Start; Complete Time: 04:15 rn Administered Medications: 04:14 Drug: NS 0.9% IV 1000 ml IV at 1000 ml once Route: IV; Rate: 1000 ml; Site: right rv antecubital; 05:56 Follow up: IV Status: Completed infusion; IV Intake: 1000ml rv 05:56 Drug: MethylPrednisoLONE IVP 125 mg IVP once Route: IVP; Site: right antecubital; rv 05:56 Follow up: Response: Medication administered at discharge. rv Disposition Summary: 05/22/23 05:15 Discharge Ordered Notes: Location: Home rn Problem: new rn Symptoms: have improved rn Condition: Stable rn Diagnosis - Unspecified acute conjunctivitis, right eye rn - Rash and other nonspecific skin eruption rn - Cough rn Followup: rn - With: Private Physician - When: As needed - Reason: Recheck today's complaints, Re-evaluation by your physician Discharge Instructions: - Discharge Summary Sheet rn - Bacterial Conjunctivitis, Adult rn - How to Use Eye Drops and Eye Ointments rn - Rash, Adult, [id number] rn - Cough, Adult rn Forms: - Medication Reconciliation Form rn - Thank You Letter rn - Antibiotic box turner - Prescription Opioid Use rn - Patient Portal Instructions rn - Leadership Thank You Letter rn Prescriptions: - Prednisone 20 mg Oral Tablet - take 3 tablets ORAL route once daily for 5 days; 15 tablet; Refills: 0, Product rn Selection Permitted - Vigamox 0.5 % Ophthalmic Drops - instill 1 drop OPHTHALMIC route every 8 hours for 7 days; 5 milliliter; rn Refills: 0, Product Selection Permitted Signatures: Dispatcher [employer] EDMS Tao Doss MD MD rn Vicente, Ronaldo, RN RN rv Finley, Pamala, RN RN pf1 Corrections: (The following items were deleted from the chart) 04:04 04:01 PSHx: breast augmentation (Anxiety); pf1 pf1 05:15 05:13 ED course: Chest x-ray images negative for pneumonia or pneumothorax per my rn interpretation. No oxygen requirement. Patient with conjunctivitis and rash during infection with influenza. Patient took unknown medication. Unknown if reaction. Will prescribe steroids and topical antibiotics for eye. rn
--- NOTE | 2023-05-22 05:16 | ER ---
Nurse's Notes [facility] Name: Jovana Galo Age: 33 yrs Sex: Female : 1990 Arrival Date: 05/22/2023 Time: 03:38 Bed 19 Private MD: Diagnosis: Unspecified acute conjunctivitis, right eye;Rash and other nonspecific skin eruption;Cough Presentation: 05/22 03:47 Chief complaint: Patient states: right eye redness with swelling,onset 1800 last night pf1 with intermittent SOB. 03:47 Coronavirus screen: Vaccine status: Patient reports being unvaccinated. Client denies pf1 travel out of the [place] in the last 14 days. Client presents with at least one sign or symptom that may indicate coronavirus-19. Ebola Screen: Patient negative for fever greater than or equal to 101.5 degrees Fahrenheit, and additional compatible Ebola Virus Disease symptoms. Initial Sepsis Screen: Does the patient meet any 2 criteria? HR > 90 bpm. No. Patient's initial sepsis screen is negative. Does the patient have a suspected source of infection? No. Patient's initial sepsis screen is negative. Risk Assessment: Do you want to hurt yourself or someone else? Patient reports no desire to harm self or others. 03:47 Method Of Arrival: Ambulatory pf1 03:47 Acuity: MARLY 3 pf1 04:14 Onset of symptoms was May 22, 2023. rv Triage Assessment: 04:14 General: Appears comfortable, Behavior is anxious. Respiratory: Reports shortness of rv breath at rest Onset: The symptoms/episode began/occurred just prior to arrival, the patient reports symptoms have resolved. Historical: - Allergies: 04:01 Tamiflu; pf1 - PMHx: 04:01 Anxiety; pf1 - PSHx: 04:02 breast augmentation; pf1 - Immunization history:: Adult Immunizations not up to date, Client reports having NOT received the Covid vaccine. Last tetanus immunization: > 10 years ago Flu vaccine is not up to date. - Social history:: Smoking status: Reported history of juuling and/or vaping. Patient uses alcohol, but reports only rare drinking. Patient/guardian denies using street drugs. - Family history:: not pertinent. - Hospitalizations: : No recent hospitalization is reported. Screenin:12 [facility] ED Fall Risk Assessment (Adult) History of falling in the last 3 months, rv including since admission No falls in past 3 months (0 pts) Score/Fall Risk Level 0 - 2 = Low Risk Oriented to surroundings, Maintained a safe environment, Educated pt \T\ family on fall prevention, incl call for assistance when getting out of bed, Assessed \T\ reinforced patient's understanding of fall precautions. Abuse screen: Denies threats or abuse. Denies injuries from another. Nutritional screening: No deficits noted. Tuberculosis screening: No symptoms or risk factors identified. Assessment: 04:12 General: Appears comfortable, Behavior is anxious. Pain: Complains of pain in right rv eye. Neuro: Level of Consciousness is awake, alert, obeys commands, Oriented to person, place, time, situation. Cardiovascular: Capillary refill < 3 seconds Patient's skin is warm and dry. Rhythm is regular. Respiratory: Airway is patent Respiratory effort is even, unlabored, Breath sounds are clear bilaterally. GI: No signs and/or symptoms were reported involving the gastrointestinal system. : No signs and/or symptoms were reported regarding the genitourinary system. Derm: Skin is intact. Vital Signs: 03:47 BP 128 / 88; Pulse 91; Resp 18; Temp 98.4; Pulse Ox 100% on R/A; Weight 65.77 kg; pf1 Height 5 ft. 4 in. ; 05:57 BP 111 / 77; Pulse 86; Resp 16; Temp 98; Pulse Ox 99% ; rv 03:47 Body Mass Index 24.89 (65.77 kg, 162.56 cm) pf1 [place] Coma Score: 05:57 Eye Response: spontaneous(4). Motor Response: obeys commands(6). Verbal Response: rv oriented(5). Total: 15. ED Course: 03:41 Patient arrived in ED. [id number] 03:42 Tao Doss MD is Attending Physician. rn 04:01 Triage completed. pf1 04:08 XRAY Chest (1 view) In Process Unspecified. EDMS 04:12 Mahesh Vela RN is Primary Nurse. rv 04:12 Patient has correct armband on for positive identification. Client placed on continuous rv cardiac and pulse oximetry monitoring. NIBP monitoring applied. 04:12 No provider procedures requiring assistance completed. Inserted saline lock: 22 gauge rv in right antecubital area, using aseptic technique. Blood collected. 04:14 Arm band placed on right wrist. rv 05:58 IV discontinued, intact, bleeding controlled, No redness/swelling at site. Pressure rv dressing applied. Administered Medications: 04:14 Drug: NS 0.9% IV 1000 ml IV at 1000 ml once Route: IV; Rate: 1000 ml; Site: right rv antecubital; 05:56 Follow up: IV Status: Completed infusion; IV Intake: 1000ml rv 05:56 Drug: MethylPrednisoLONE IVP 125 mg IVP once Route: IVP; Site: right antecubital; rv 05:56 Follow up: Response: Medication administered at discharge. rv Medication: 04:12 VIS not applicable for this client. rv Intake: 05:56 IV: 1000ml; Total: 1000ml. rv Outcome: 05:15 Discharge ordered by MD. rn 05:57 Discharged to home ambulatory, rv 05:57 Condition: good 05:57 Discharge instructions given to patient, Instructed on discharge instructions, follow up and referral plans. medication usage, Demonstrated understanding of instructions, follow-up care, medications, Prescriptions given X 2, 05:58 Patient left the ED. rv Signatures: Dispatcher [employer] EDMS Tao Doss MD MD rn Vicente, Ronaldo, RN RN rv Rox Mejia [id number] Arlene Gaitan RN RN pf1 Corrections: (The following items were deleted from the chart) 04:04 04:01 PSHx: breast augmentation (Anxiety); pf1 pf1
[2023-05-22 06:55] VITALS: BP 111/77; TEMP 98; O2SAT 99
--- NOTE | 2023-05-22 18:25 | RAD REPORT ---
EXAM DESCRIPTION: RAD - Chest Single View - 05/22/2023 4:06 am CLINICAL HISTORY: COUGH COMPARISON: None. TECHNIQUE: XR CHEST 1 VIEW 05/22/2023 3:55 AM ENGINEERING SECRETARY FINDINGS: Cardiac silhouette is normal in size. Lungs are clear without consolidation, atelectasis, mass or edema. There is no pleural effusion. There is no pneumothorax. There are no acute osseous fin dings. IMPRESSION: Clear lungs. Electronically signed by: Dieudonne Murillo MD 05/22/2023 04:35 AM ENGINEERING SECRETARY Due to temporary technical issues with the PACS/Fluency reporting system, reports are being signed by the in house radiologists without review as a courtesy to insure prompt reporting. The interpreting radiologist is fully responsible for the content of the report.
== END 2023-05-22 05:58 | disposition home or self-care (01) ==
LOC: ER 03:38
DX: H10.31 Unspecified acute conjunctivitis, right eye (principal); R21 Rash and other nonspecific skin eruption; R05.9 Cough, unspecified; F41.9 Anxiety disorder, unspecified
CPT/HCPCS: 96361; 80048; 36415; 82550; 71045; 96374; 99284; J7030